=== PATIENT | male | born 1995 | race African-American/Black ===

== ENCOUNTER 2021-12-13 22:17 | Emergency (ER) | payer SELFPAY ==
[~2021-12-13] VITALS: Ht 193 cm; Wt 84.1 kg
[2021-12-13 22:24] VITALS: BP 115/57
[2021-12-14 07:19] LABS: APPEARANCE,URINE TURBID (CLEAR); BILIRUBIN,URINE NEGATIVE (NEGATIVE); GLUCOSE, URINE (UA) NEGATIVE (NEGATIVE); KETONES,URINE NEGATIVE (NEGATIVE); LEUKOCYTE ESTERASE ,URINE LARGE (NEGATIVE); NITRATE,URINE NEGATIVE (NEGATIVE); OCCULT BLOOD,URINE NEGATIVE (NEGATIVE); PH,URINE 5.5 (5.0-8.0); PROTEIN,URINE TRACE mg/dL (NEGATIVE); SPECIFIC GRAVITIY, URINE 1.028 (1.003-1.030); UROBILINOGEN,URINE <=1.0 mg/dL (<=1.0)
[2021-12-14 07:58] LABS: AMORPHOUS SEDIMENT,UR Many /LPF (None Seen); BACTERIA,URINE Moderate /HPF (None Seen); RBC,URINE None Seen /HPF (0-2); SQUAMOUS EPITHELIAL CELL,UR Few /LPF (None Seen); WBC,URINE 0-2 /HPF (0-5)
== END 2021-12-14 00:25 | disposition left against medical advice (07) ==
LOC: EMS 22:21
DX: A64 Unspecified sexually transmitted disease (principal); Z53.21 Procedure and treatment not carried out due to patient leaving prior to being seen by health care provider
CPT/HCPCS: 81001; 87086; 87491; 87591

== ENCOUNTER 2023-01-25 23:16 | Emergency (ER) | payer MEDICAID ==
[~2023-01-25] VITALS: Ht 193 cm; Wt 82.0 kg
[2023-01-26] MEDS ORDERED: HYDROCODONE/ACETAMINOPHEN 5-325 MG TABLET PO ONE (00:15)
[2023-01-26] MEDS ORDERED: TRAM-559 PO (01:34)
[2023-01-26 01:49] VITALS: BP 117/80; PULSE 80; RESP 16; TEMP 98.2
== END 2023-01-26 01:50 | disposition home or self-care (01) ==
LOC: EMS 23:18
DX: S62.300A Unspecified fracture of second metacarpal bone, right hand, initial encounter for closed fracture (principal); F12.90 Cannabis use, unspecified, uncomplicated; Y08.89XA Assault by other specified means, initial encounter; Y93.89 Activity, other specified; Y92.89 Other specified places as the place of occurrence of the external cause; Y99.8 Other external cause status
CPT/HCPCS: 99283